=== PATIENT | female | born 1955 | race African-American/Black ===

== ENCOUNTER 2017-12-12 12:38 | Emergency (ER) | payer MEDICAID, OTHER ==
[~2017-12-12] VITALS: Ht 162.6 cm; Wt 85.0 kg
[~2017-12-12 12:38] MED LIST: BP MEDICATION
[2017-12-12] MEDS ORDERED: DIPHENHYDRAMINE 50MG/ML VIAL IV ONE (14:15)
[2017-12-12] MEDS ORDERED: SODIUM CHLORIDE 0.9% 1,000 ML IV ONE (14:15)
[2017-12-12] MEDS ORDERED: KETOROLAC 15MG/ML VIAL IV ONE (14:15)
[2017-12-12] MEDS ORDERED: METOCLOPRAMIDE HCL 10MG/2ML VIAL IV ONE (14:15)
[2017-12-12 16:25] VITALS: BP 109/77
== END 2017-12-12 16:29 | disposition home or self-care (01) ==
LOC: ER 12:46
DX: G43.909 Migraine, unspecified, not intractable, without status migrainosus (principal); I10 Essential (primary) hypertension; R11.2 Nausea with vomiting, unspecified; Z88.0 Allergy status to penicillin
CPT/HCPCS: 96361; 96374; 96375; 99284; J1200; J1885; J2765; Z7610; J7030

== ENCOUNTER 2018-02-28 15:43 | Emergency (ER) | payer MEDICAID ==
[~2018-02-28] VITALS: Ht 167.6 cm; Wt 100.0 kg
[2018-02-28] MEDS ORDERED: MORPHINE SULFATE 10 MG/ML CPJ IM ONE (16:15)
[2018-02-28 18:52] VITALS: BP 108/66
== END 2018-02-28 20:05 ==
LOC: ER 16:06
DX: K94.23 Gastrostomy malfunction (principal); I10 Essential (primary) hypertension; Z85.841 Personal history of malignant neoplasm of brain; Z88.0 Allergy status to penicillin
CPT/HCPCS: 96372; 99285; J2270